=== PATIENT | male | born 1990 | race Caucasian/White ===

== ENCOUNTER 2021-03-06 08:56 | Emergency (ER) | payer BC ==
[~2021-03-06] VITALS: Ht 175.3 cm; Wt 72.6 kg
[2021-03-06 09:20] VITALS: BP 127/72
--- NOTE | 2021-03-06 09:26 | NUR ---
PT AMBULATED TO BED 12
--- NOTE | 2021-03-06 10:14 | NUR ---
PT TRANSPORTED TO [facility] VIA W/C.
--- NOTE | 2021-03-06 10:20 | NUR ---
PT RETURNED FROM XRAY, VIA W/C.
[2021-03-06 11:18] VITALS: BP 127/72
--- NOTE | 2021-03-06 11:18 | NUR ---
Patient discharged with v/s stable. Written and verbal after care instructions given and explained. Patient verbalized understanding. Ambulatory with steady gait. All questions addressed prior to discharge. Advised to follow up with PMD.
== END 2021-03-06 11:18 | disposition home or self-care (01) ==
LOC: MED 08:56
DX: S16.1XXA Strain of muscle, fascia and tendon at neck level, initial encounter (principal); S00.91XA Abrasion of unspecified part of head, initial encounter; W22.8XXA Striking against or struck by other objects, initial encounter; Y93.89 Activity, other specified; Y92.89 Other specified places as the place of occurrence of the external cause; Y99.8 Other external cause status
CPT/HCPCS: 72040; 90471; 90715; 99283